=== PATIENT | female | born 1980 | race Caucasian/White ===

== ENCOUNTER 2016-11-10 10:28 | Emergency (ER) | payer OTHER ==
[~2016-11-10] VITALS: Ht 162.6 cm; Wt 67.1 kg
[~2016-11-10 10:28] MED LIST: HYDR2.5%T PR
[2016-11-10 10:32] VITALS: BP 129/90; PULSE 118; RESP 16; TEMP 98.1; O2SAT 99
[2016-11-10 11:11] LABS: BLOOD, URINE TRACE (NEG); GLUCOSE,URINE NEG (NEG); KETONE, URINE TRACE mg/dL (NEG); NITRITE,URINE NEG (NEG); PH, URINE 5.5 (5.0-8.5)
[2016-11-10 11:21] LABS: METHOD OF COLLECTION VOIDED; MUCUS URINE MOD /lpf (OCC); URINE COLOR YELLOW (YELLW/STRAW)
[2016-11-10 11:22] LABS: BACTERIA, URINE FEW /hpf; COMMENT (UR) CULT NOT INDICATED; CULTURE IF INDICATED CULT NOT INDICATED; RBC, URINE 0-3 /hpf (0-3); SQUAMOUS EPITHELIAL CELL URINE 0-5 /hpf (0-5); WBC, URINE 0-2 /hpf (0-5)
[2016-11-10] MEDS ORDERED: SODIUM CHLOR 0.9% 1000 ML INJ 1,000 ML IV ONE (12:00)
[2016-11-10] MEDS ORDERED: ONDANSETRON HCL 4 MG/2 ML VIAL IV PUSH ONE (12:00)
[2016-11-10 12:25] LABS: AUTOMATED NEUTROPHIL # 13.5 TH/MM3 (1.8-7.7); BASOPHIL % 0.2 % (0.0-2.0); EOSINOPHIL # 0.1 TH/MM3 (0-0.4); LYMPH % 2.9 % (9.0-44.0); LYMPHOCYTE # 0.4 TH/MM3 (1.0-4.8); MEAN CELL VOLUME 85.5 FL (80.0-100.0); MEAN CORPUSCULAR HEMOGLOBIN 29.3 PG (27.0-34.0); MEAN CORPUSCULAR HGB CONC 34.3 % (32.0-36.0); NEUT % 92.9 % (16.0-70.0); PLATELET COUNT 254 TH/MM3 (150-450); RED BLOOD COUNT 4.91 MIL/MM3 (4.00-5.30); RED CELL DISTRIBUTION WIDTH 12.6 % (11.6-17.2); WHITE BLOOD COUNT 14.4 TH/MM3 (4.0-11.0)
[2016-11-10 12:28] LABS: HEMO FLAGS DIFF FINAL
[2016-11-10 12:34] LABS: CHLORIDE 108 MEQ/L (98-107); POTASSIUM 3.7 MEQ/L (3.5-5.1); SODIUM (NA) 142 MEQ/L (136-145)
[2016-11-10 12:37] LABS: ANION GAP 7 MEQ/L (5-15); BICARBONATE 26.9 MEQ/L (21.0-32.0)
[2016-11-10 12:38] LABS: BLOOD UREA NITROGEN 16 MG/DL (7-18)
[2016-11-10 12:41] LABS: ALT (GPT) 29 U/L (10-53); AST (GOT) 15 U/L (15-37); GLOMERULAR FILTRATION RATE 89 ML/MIN (>89)
[2016-11-10 12:42] LABS: TOTAL BILIRUBIN ADULT 0.5 MG/DL (0.2-1.0)
[2016-11-10 12:43] LABS: ALKALINE PHOSPHATASE 81 U/L (45-117)
--- NOTE | 2016-11-10 13:23 | PD ---
HPI Chief Complaint: GI Complaint Time Seen by Provider: 11:33 Travel History International Travel<30 days: No Contact w/Intl Traveler<30days: No Traveled to known affect area: No History of Present Illness HPI Patient is a 35 year old female who comes in complaining of nausea, vomiting, diarrhea. She says this all started early this morning and she has had several episodes of vomiting and diarrhea. She denies seeing any blood in her stool or vomit. The last thing she ate was some eggs at [facility]. Her significant other who is with her is starting to feel similar symptoms. She denies any abdominal pain. She has not had any fevers. [facility] Past Medical History Medical History: Denies Significant Hx Hx Anticoagulant Therapy: No Diabetes: No Influenza Vaccination: No ?: Not Tubal Ligation: Yes Social History Alcohol Use: No Tobacco Use: No Substance Use: No Allergies-Medications (Allergen,Severity, Reaction): Coded Allergies: No Known Allergies (Unverified , 11/10/16) Reported Meds & Prescriptions Reported Meds & Active Scripts Active Review of Systems Except as stated in HPI: all other systems reviewed are Neg General / Constitutional: Positive: Chills, No: Fever HENT: No: Headaches, Lightheadedness Cardiovascular: No: Chest Pain or Discomfort Respiratory: No: Shortness of Breath Gastrointestinal: Positive: Nausea, Vomiting, Diarrhea, No: Abdominal Pain Genitourinary: No: Dysuria, Flank Pain Musculoskeletal: No: Myalgias, Edema Skin: No Rash, No Change in Pigmentation Neurologic: No: Weakness, Dizziness Physical Exam Narrative GENERAL: Awake and alert in no acute distress. SKIN: Warm and dry. HEAD: Atraumatic. Normocephalic. EYES: Pupils equal and round. No scleral icterus. ENT: Mucous membranes pink and moist. NECK: Trachea midline. No JVD. CARDIOVASCULAR: Regular rate and rhythm. No murmur appreciated. RESPIRATORY: No accessory muscle use. Clear to auscultation. Breath sounds equal bilaterally. GASTROINTESTINAL: Abdomen soft, non-tender, nondistended. No CVA tenderness. MUSCULOSKELETAL: No obvious deformities. No clubbing. No cyanosis. No edema. NEUROLOGICAL: Awake and alert. No obvious cranial nerve deficits. Motor grossly within normal limits. Normal speech. PSYCHIATRIC: Appropriate mood and affect; insight and judgment normal. Data Data Last Documented VS Vital Signs Date Time Temp Pulse Resp B/P Pulse Ox O2 Delivery O2 Flow Rate FiO2 11/10/16 10:32 98.1 118 16 129/90 99 Orders Urinalysis - C+S If Indicated (11/10/16 10:50) Complete Blood Count With Diff (11/10/16 11:47) Comprehensive Metabolic Panel (11/10/16 11:47) Ed Urine Pregnancytest Poc (11/10/16 11:47) Sodium Chlor 0.9% 1000 Ml Inj (Ns 1000 M (11/10/16 12:00) Ondansetron Inj (Zofran Inj) (11/10/16 12:00) Labs Laboratory Tests Test 11/10/16 11/10/16 11:00 12:05 Urine Collection Type VOIDED Urine Color YELLOW Urine Turbidity CLEAR Urine pH 5.5 Urine Specific [place] 1.028 Urine Protein TRACE mg/dL Urine Glucose (UA) NEG mg/dL Urine Ketones TRACE mg/dL Urine Occult Blood TRACE Urine Nitrite NEG Urine Bilirubin NEG Urine Leukocyte Esterase NEG Urine RBC 0-3 /hpf Urine WBC 0-2 /hpf Urine Squamous Epithelial 0-5 /hpf Cells Urine Bacteria FEW /hpf Urine Mucus MOD /lpf Microscopic Urinalysis Comment CULT NOT INDICATED White Blood Count 14.4 TH/MM3 Red Blood Count 4.91 MIL/MM3 Hemoglobin 14.4 GM/DL Hematocrit 42.0 % Mean Corpuscular Volume 85.5 FL Mean Corpuscular Hemoglobin 29.3 PG Mean Corpuscular Hemoglobin 34.3 % Concent Red Cell Distribution Width 12.6 % Platelet Count 254 TH/MM3 Mean Platelet Volume 8.7 FL Neutrophils (%) (Auto) 92.9 % Lymphocytes (%) (Auto) 2.9 % Monocytes (%) (Auto) 3.0 % Eosinophils (%) (Auto) 1.0 % Basophils (%) (Auto) 0.2 % Neutrophils # (Auto) 13.5 TH/MM3 Lymphocytes # (Auto) 0.4 TH/MM3 Monocytes # (Auto) 0.4 TH/MM3 Eosinophils # (Auto) 0.1 TH/MM3 Basophils # (Auto) 0.0 TH/MM3 CBC Comment DIFF FINAL Differential Comment Sodium Level 142 MEQ/L Potassium Level 3.7 MEQ/L Chloride Level 108 MEQ/L Carbon Dioxide Level 26.9 MEQ/L Anion Gap 7 MEQ/L Blood Urea Nitrogen 16 MG/DL Creatinine 0.74 MG/DL Estimat Glomerular Filtration 89 ML/MIN Rate Random Glucose 95 MG/DL Calcium Level 8.6 MG/DL Total Bilirubin 0.5 MG/DL Aspartate Amino Transf 15 U/L (AST/SGOT) Alanine Aminotransferase 29 U/L (ALT/SGPT) Alkaline Phosphatase 81 U/L Total Protein 7.9 GM/DL Albumin 4.1 GM/DL MDM Medical Decision Making Medical Screen Exam Complete: Yes Emergency Medical Condition: Yes Differential Diagnosis Gastroenteritis versus gastritis versus colitis Narrative Course Patient is a 35-year-old female comes in complaining of nausea, vomiting, diarrhea. Exam shows no abdominal tenderness. Labs sent show an elevated white count of 14.4. This is likely due to the viral illness/the stress of vomiting. Patient given IV fluids, Zofran. She states she feels much better. She is able to drink water without vomiting. Will be discharged home. Advised to drink plenty of fluids. Advised to eat a bland diet if she is feeling hungry. Advised to return to the ED as needed for any worsening symptoms. Diagnosis Primary Impression: Gastroenteritis Patient Instructions: Gastroenteritis (ED), General Instructions Additional Instructions: Drink plenty of fluids. If you are hungry, eat a bland diet of crackers, toast , broth. Return to the ED if your symptoms worsen or you are unable to drink fluids. Disposition: 01 DISCHARGE HOME Condition: Stable Tiffanie Kumar MD Nov 10, 2016 13:23
[2016-11-10 13:39] VITALS: BP 107/64; PULSE 105; RESP 16; TEMP 98.6; O2SAT 99
== END 2016-11-10 13:40 | disposition home or self-care (01) ==
LOC: PHED 10:28
DX: K52.9 Noninfective gastroenteritis and colitis, unspecified (principal)
CPT/HCPCS: 80053; 81001; 84703; 85025; 96361; 96374; 99284; J2405; J7030

== ENCOUNTER 2017-10-25 10:44 | Emergency (ER) | payer SELFPAY ==
[~2017-10-25] VITALS: Ht 162.6 cm; Wt 59.0 kg
[2017-10-25 10:46] VITALS: BP 125/86; PULSE 95; RESP 18; TEMP 98.3; O2SAT 100
--- NOTE | 2017-10-25 11:06 | PD ---
Physical Exam Time Seen by Provider: 11:04 Narrative 36yo F c/o sinus pressure, cough, nasal congestion, bodyaches x 1 week. No vomiting since thursday. Unknown fevers. Patient seen in triage. Awaiting bed placement. See next providers note for final patient disposition. Data Data Last Documented VS Vital Signs Date Time Temp Pulse Resp B/P (MAP) Pulse Ox O2 Delivery O2 Flow Rate FiO2 10/25/17 10:46 98.3 95 18 125/86 (99) 100 Room Air [facility] Supervised Visit with OSEAS: Porsha Mohr Oct 25, 2017 11:05
[2017-10-25] MEDS ORDERED: MEDR4PAK PO (11:55)
[2017-10-25] MEDS ORDERED: ZOFR4TAB3 SL (11:55)
--- NOTE | 2017-10-25 11:57 | PD ---
HPI Chief Complaint: Cold / Flu Symptoms Time Seen by Provider: 11:22 Travel History International Travel<30 days: No Contact w/Intl Traveler<30days: No Traveled to known affect area: No History of Present Illness HPI 36-year-old female presents to emergency department complaining of a head cold for approximately 2 and half weeks. Patient states that she has nasal congestion with mild clear rhinorrhea, nausea, and loose stool that started Artie. Patient states that she has also felt more tired and has had a sore throat. She has had subjective fevers and decreased decreased appetite as well. Patient tried multiple vayu-lbo-spwvbgy medications to include Sudafed, DayQuil, and cold and flu tablets without significant relief. Patient denies shortness of breath or chest pain. Denies abdominal pain. Denies urinary symptoms. PFSH Past Medical History Hx Anticoagulant Therapy: No Diabetes: No ?: Not LMP: 10/07/17 Tubal Ligation: Yes Social History Alcohol Use: No Tobacco Use: No Substance Use: No Allergies-Medications (Allergen,Severity, Reaction): Coded Allergies: No Known Allergies (Unverified , 11/10/16) Reported Meds & Prescriptions Reported Meds & Active Scripts Active Zofran Odt (Ondansetron Odt) 4 Mg Tab 4 Mg SL Q8HR PRN 5 Days Medrol Dosepak (Methylprednisolone) 4 Mg Dspk 4 Mg PO DIRECTED Per Pharmacist direction Review of Systems Except as stated in HPI: all other systems reviewed are Neg Physical Exam Narrative GENERAL: Well-nourished in mild distress, flaring her nostrils frequently SKIN: Focused skin assessment warm/dry. HEAD: Atraumatic. Normocephalic. EYES: Pupils equal and round. No scleral icterus. No injection or drainage. ENT: clear rhinorrhea. Mucous membranes pink and moist. THROAT: No pharyngeal injection, exudates, or tonsillar hypertrophy. Airway is patent. Postnasal drip present NECK: Trachea midline. No JVD. No lymphadenopathy CARDIOVASCULAR: Regular rate and rhythm. No murmur appreciated. RESPIRATORY: No accessory muscle use. Clear to auscultation. Breath sounds equal bilaterally. GASTROINTESTINAL: Abdomen soft, non-tender, nondistended. MUSCULOSKELETAL: No obvious deformities. No clubbing. No cyanosis. No edema. No CVA tenderness NEUROLOGICAL: Awake and alert. No obvious cranial nerve deficits. Motor grossly within normal limits. Normal speech. PSYCHIATRIC: Appropriate mood and affect; insight and judgment normal. Data Data Last Documented VS Vital Signs Date Time Temp Pulse Resp B/P (MAP) Pulse Ox O2 Delivery O2 Flow Rate FiO2 10/25/17 10:46 98.3 95 18 125/86 (99) 100 Room Air Orders Orders Influenzae A/B Antigen (10/25/17 11:44) Ed Discharge Order (10/25/17 12:42) MDM Medical Decision Making Medical Screen Exam Complete: Yes Emergency Medical Condition: Yes Differential Diagnosis Viral syndrome, influenza, common cold Narrative Course 36-year-old female presents to emergency department complaining of a head cold for approximately 2 and half weeks. Patient states that she has nasal congestion with mild clear rhinorrhea, nausea, and loose stool that started Thursday. Patient states that she has also felt more tired and has had a sore throat. She has had subjective fevers and decreased decreased appetite as well. Patient tried multiple doth-ujw-cdnzwrm medications to include Sudafed, DayQuil, and cold and flu tablets without significant relief. Patient denies shortness of breath or chest pain. Denies abdominal pain. Denies urinary symptoms. Vital signs- mildly tachycardic at 95, likely related to decreased fluid intake over the last week. Physical exam findings consistent with an upper respiratory infection and cold symptoms. It is possible that her symptoms are related to allergies as she does have a history of asthma and allergies in her youth. I explained the likely diagnosis and treatment for her condition. Patient be discharged with steroids and Zofran. Advised to follow up with her primary care physician within 2-3 days. Follow-up with emergency room if worsening or persistent symptoms. Diagnosis Primary Impression: Viral syndrome Referrals: [facility] Additional Instructions: Take all medications as prescribed. Your given steroids as some of her symptoms may be related to allergies. If your symptoms worsen or persists return to the emergency department. Encourage a healthy fluid intake with a nutritious diet. You test was negative for the flu but you have a viral syndrome. Follow up with your primary care physician this week. Scripts Ondansetron Odt (Zofran Odt) 4 Mg Tab 4 MG SL Q8HR Y for Nausea/Vomiting for 5 Days, #20 TAB 0 Refills Prov: Jeimy cOonnor 10/25/17 Methylprednisolone Dosepak (Medrol Dosepak) 4 Mg Dspk 4 MG PO DIRECTED, #1 DSPK 0 Refills Per Pharmacist direction Prov: Jeimy Oconnor 10/25/17 Disposition: 01 DISCHARGE HOME Condition: Stable Jeimy Oconnor Oct 25, 2017 11:57
== END 2017-10-25 12:48 | disposition home or self-care (01) ==
LOC: NEPK 10:44
DX: B34.9 Viral infection, unspecified (principal)
CPT/HCPCS: 87804; 99284